=== PATIENT | male | born 1990 | race Caucasian/White ===

== ENCOUNTER 2021-05-13 10:56 | Emergency (ER) | payer SELFPAY ==
--- NOTE | 2021-05-13 11:24 | EDM.PDOC ---
ED HPI GENERAL MEDICAL PROBLEM - General Chief Complaint: General Stated Complaint: sorethroat, headache, cough, ear pain Time Seen by Provider: 05/13/21 11:00 Source of Information: Reports: Patient History Limitations: Reports: No Limitations - History of Present Illness INITIAL COMMENTS - FREE TEXT/NARRATIVE: Patient has been ill for the last 5-6 days. Started out with sore throat, headache, body aches, ear pain , cough, and he decided to stay home for [place]. Taking over the counter medications. Not getting better, wanted to go to the clinic today but they are closed due to weather. has had ear infections as an adult, but been several months since this. not vaccinated for covid or influenza, attends college headache Pain Score (Numeric/FACES): 3 - Related Data Allergies Allergy/AdvReac Type Severity Reaction Status Date / Time No Known Allergies Allergy Verified 05/13/21 10:57 Home Meds: Home Meds . [No Known Home Meds] 05/13/21 [History] Past Medical History HEENT History: Reports: Otitis Media Musculoskeletal History: Reports: Fracture, Other (See Below) Other Musculoskeletal History: fx collar bone - Past Surgical History HEENT Surgical History: Reports: Tonsillectomy, Other (See Below) Other HEENT Surgeries/Procedures: facial surgery Musculoskeletal Surgical History: Reports: Other (See Below) Other Musculoskeletal Surgeries/Procedures:: fx collar bone repair Social & Family History - Tobacco Use Tobacco Use Status *Q: Never Tobacco User Second Hand Smoke Exposure: No - Caffeine Use Caffeine Use: Reports: Soda - Alcohol Use Alcohol Use History: No Alcohol Use in Last Twelve Months: No - Recreational Drug Use Recreational Drug Use: No ED ROS GENERAL - Review of Systems Review Of Systems: See Below Constitutional: Reports: Fever, Malaise, Weakness, Fatigue HEENT: Reports: Ear Pain, Rhinitis, Throat Pain. Denies: Ear Discharge Respiratory: Reports: Cough. Denies: Shortness of Breath Cardiovascular: Reports: No Symptoms, Chest Pain, Dyspnea on Exertion Endocrine: Reports: No Symptoms GI/Abdominal: Reports: Vomiting (x 2 but keeping fluids and food down ) : Reports: No Symptoms Musculoskeletal: Reports: Muscle Pain Neurological: Reports: Headache ED EXAM, GENERAL - Physical Exam Exam: See Below Exam Limited By: No Limitations General Appearance: Alert, WD/WN, No Apparent Distress Eye Exam: Bilateral Eye: EOMI, Normal Inspection, PERRL Ears: Normal External Exam Ear Exam: Bilateral Ear: TM Red, TM Bulging, Other (canal with inflamation but no drainage) Nose: Clear Rhinorrhea Throat/Mouth: Normal Inspection, Normal Lips, Normal Voice, No Airway Compromise Head: Atraumatic Neck: Normal Inspection, Supple, Non-Tender, Full Range of Motion. No: Lymphadenopathy (L), Lymphadenopathy (R) Respiratory/Chest: No Respiratory Distress, Lungs Clear, Normal Breath Sounds, C hest Non-Tender Cardiovascular: Normal Peripheral Pulses, Regular Rate, Rhythm, No Edema, No Murmur GI/Abdominal: Normal Bowel Sounds Extremities: Normal Inspection, Normal Range of Motion, Non-Tender, Normal Capillary Refill Neurological: Alert, Oriented, CN II-XII Intact, Normal Cognition Course - Vital Signs Last Recorded V/S: Last Vital Signs Temp 37.2 C 05/13/21 10:59 Pulse 88 05/13/21 10:59 Resp 18 05/13/21 10:59 BP 108/77 05/13/21 10:59 Pulse Ox 96 05/13/21 10:59 - Orders/Labs/Meds Orders: Active Orders 24 hr Category Date Time Status COVID-19/FLU A+B/RSV [[facility]LEC] Stat Lab 05/13/21 11:14 Received - Re-Assessments/Exams Free Text/Narrative Re-Assessment/Exam: 05/13/21 11:55 will check him for covid. flu/rsv, but will need treatment for the ears. amoxicillin 500 mg po tid, script to finish 10 days given from ed stock 05/13/21 12:06 negative viral panel. Will treat the ears, full script from here,. Advised follow up to ensure cleared Departure - Departure Time of Disposition: 12:05 Disposition: Home, Self-Care 01 Clinical Impression: Otitis media, Upper respiratory infection, viral - Discharge Information *PRESCRIPTION DRUG MONITORING PROGRAM REVIEWED*: Not Applicable *COPY OF PRESCRIPTION DRUG MONITORING REPORT IN PATIENT KELSIE: Not Applicable Instructions: Otitis Media, Adult, [id number], Viral Respiratory Infection, [id number] Referrals: [facility] [employer] [Primary Care Provider] - Forms: ED Department Discharge Additional Instructions: Take one tablet of amoxicillin three times a day for the next 10 days. Make sure to finish the antibiotics. Have your PCP check ears after this to ensure infection cleared. If not consider follow up with Ear nose and Throat doctor for possible ear tubes. Treatment symptoms with tylenol. motrin, or over the counter medications Sepsis Event Note (ED) - Focused Exam Vital Signs: Vital Signs Temp Pulse Resp BP Pulse Ox 05/13/21 10:59 37.2 C 88 18 108/77 96 - My Orders Last 24 Hours: My Active Orders 05/13/21 11:14 COVID-19/FLU A+B/RSV [MOLEC] Stat - Assessment/Plan Last 24 Hours: My Active Orders 05/13/21 11:14 COVID-19/FLU A+B/RSV [MOLEC] Stat
[2021-05-13 11:59] LABS: CORONAVIRUS COVID-19 NAA NEGATIVE (NEGATIVE); RESPIRATORY SYNCYTIAL VIR NAA NEGATIVE (NEGATIVE)
== END 2021-05-13 12:13 | disposition home or self-care (01) ==
LOC: LL.ED 10:56
DX: J06.9 Acute upper respiratory infection, unspecified (principal); H66.93 Otitis media, unspecified, bilateral; Z20.822 Contact with and (suspected) exposure to COVID-19
CPT/HCPCS: 0241U; 99283